=== PATIENT | female | born 1945 | race Caucasian/White ===

== ENCOUNTER 2024-01-06 17:16 | Emergency (ER) | payer OTHER, SELFPAY ==
[2024-01-06] VITALS (17 sets, daily range): BP systolic 99–148; BP diastolic 58–78; PULSE 75–102; RESP 18–35; TEMP 37.2; O2SAT 94–100; BMI 16.5
--- NOTE | 2024-01-06 17:43 | DI.CT.S_ITS ---
PROCEDURE: CT HEAD/BRAIN WO CON INDICATIONS: multiple falls, headache, chronic headache TECHNIQUE: Noncontrast 4.5 mm thick angled axial sections acquired from the foramen magnum to the vertex, with coronal and sagittal reformats. For radiation dose reduction, the following was used: automated exposure control, adjustment of mA and/or kV according to patient size. COMPARISON: [facility], CT, CT CERVICAL SPINE WO CON, 01/06/2024, 17:58. FINDINGS: Image quality: Diagnostic. CSF spaces: Basal cisterns are patent. No extra-axial fluid collections. The ventricles are symmetric in size and shape. Brain: No intracranial bleeds or masses. There is cerebral volume loss for age, with resultant ventricular and sulcal prominence. There are periventricular and deep white matter chronic small vessel ischemic changes. There is intracranial internal carotid artery atherosclerosis. Skull and face: Calvarium and visualized facial bones appear intact, without suspicious lesions. Sinuses: Visualized sinuses and mastoids are clear. IMPRESSION: 1. No acute intracranial process. 2. Moderate atrophy and chronic microvascular ischemic changes. Dictated by: Barbie Cruz M.D. on 01/06/2024 at 18:51 Approved by: Barbie Cruz M.D. on 01/06/2024 at 18:52
--- NOTE | 2024-01-06 17:43 | DI.RAD.S_ITS ---
PROCEDURE: XR CHEST 1V INDICATIONS: chest pain TECHNIQUE: One view of the chest was acquired. COMPARISON: None. FINDINGS: Surgical changes and devices: None. Lungs and pleura: Lungs are clear. No pleural effusions or pneumothorax. Mediastinum: Mediastinal contours appear normal. Heart size is normal. Bones and chest wall: No suspicious bony lesions. Overlying soft tissues appear unremarkable. IMPRESSION: No acute cardiopulmonary abnormality is seen. Dictated by: Barbie Cruz M.D. on 01/06/2024 at 18:11 Approved by: Barbie Cruz M.D. on 01/06/2024 at 18:12
--- NOTE | 2024-01-06 17:43 | DI.CT.S_ITS ---
PROCEDURE: CT CERVICAL SPINE WO CON INDICATIONS: multiple falls TECHNIQUE: Noncontrast 3 mm thick sections acquired from the skull base to the T4 level. Sagittal and coronal reformats were then constructed. For radiation dose reduction, the following was used: automated exposure control, adjustment of mA and/or kV according to patient size. COMPARISON: None. FINDINGS: Image quality: Excellent. Bones: No fractures or dislocations. Visualized superior ribs are intact. Multilevel degenerative disc space narrowing most severe C4-5 through C6-7. There is reversal cervical curvature with apex at C5-6. Multilevel anterior osteophytes present. 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 Soft tissues: Prevertebral soft tissues are normal in thickness. No paravertebral hematomas. No apical pneumothoraces. IMPRESSION: Multilevel degenerative changes without visualized fracture Dictated by: Barbie Cruz M.D. on 01/06/2024 at 18:52 Approved by: Barbie Cruz M.D. on 01/06/2024 at 18:53
[2024-01-06 18:01] LABS: Appearance Urine UA CLEAR; Bilirubin Urine UA 1+ (NEGATIVE); Color Urine UA YELLOW; Glucose Urine UA NEGATIVE (Negative); Ketones Urine UA TRACE (NEGATIVE); Leukocyte Esterase Urine UA NEGATIVE (NEGATIVE); Nitrite Urine UA NEGATIVE (Negative); Occult Blood Urine UA NEGATIVE (Negative); Protein Urine UA 2+ (Negative); Specific Gravity Urine UA >=1.030 (1.000-1.035)
[2024-01-06 18:05] LABS: UR Morphine/Opiate cutoff 300 Negative (Negative); Ur Creatinine Normal (Normal); Ur Specific Gravity Normal (Normal); Urine Amphetamines Negative (Negative); Urine Barbiturates Negative (Negative); Urine Benzodiazepines Negative (Negative); Urine Cocaine Negative (Negative); Urine MDMA Negative (Negative); Urine Methadone Negative (Negative); Urine Methamphetamines Negative (Negative); Urine Oxycodone Negative (Negative); Urine Phencyclidine Negative (Negative); Urine Tetrahydrocannabinol Positive (Negative); Urine Tricyclic Antidepressant Negative (Negative); Urine pH Normal (Normal)
[2024-01-06 18:10] LABS: Bacteria Urine Moderate (10-30); Culture Indicated Urine Cult Not Indicated; Hyaline Casts Urine 1-5/LPF; Ictotest Urine Positive (Negative); Mucus Urine 1+ (Negative); RBC Urine None Seen (0-5/HPF); Squamous Epithelial Cell Urine 10-30 /HPF (0-5/HPF); Urine Volume 10mL (spun); WBC Urine 1-5/HPF (0-5/HPF)
[2024-01-06 18:23] LABS: INR 1.3 (0.9-1.3); Prothrombin Time 15.1 SECONDS (9.4-12.5)
[2024-01-06 18:26] LABS: Add Manual Diff / Slide Review NO; Basophils Absolute Auto 0 /uL (0-100); Basophils Percent Auto 0.4 % (0-2); Eosinophils Absolute Auto 100 /uL (0-450); Eosinophils Percent Auto 1.2 % (2-4); Hematocrit 33.8 % (36-46); Hemoglobin 11.8 g/dL (12.0-16.0); Lymphocytes Absolute Auto 900 /uL (1100-4500); Lymphocytes Percent Auto 9.3 % (25-40); Mean Corpuscular HGB Conc 34.8 % (30-36); Mean Corpuscular Hemoglobin 39.8 PG (26-34); Mean Corpuscular Volume 114.1 fL (80-100); Monocytes Absolute Auto 600 /uL (0-900); Monocytes Percent Auto 5.9 % (3-14); Neutrophils Absolute Auto 8200 /uL (1500-7000); Neutrophils Percent Auto 83.2 % (50-75); PTT Partial Thromboplastin Tim 32 SECONDS (25.1-36.5); Platelet Count 200 X10^3/uL (150-400); Red Blood Cell Count 2.96 X10^6/uL (4.0-5.2); Red Cell Distribution Width 14.3 % (11.6-14.8); White Blood Cell Count 9.9 X10^3/uL (4.5-11.0)
[2024-01-06 18:29] LABS: Albumin 4.5 g/dL (3.5-5.0); Albumin Globulin Ratio 1.4 (1.0-2.8); Alkaline Phosphatase 158 U/L (38-126); BUN Creatinine Ratio 23.7 (6-22); Bilirubin Total 3.1 mg/dL (0.2-1.3); Blood Urea Nitrogen 28 mg/dL (7-17); Calcium 9.6 mg/dL (8.4-10.2); Carbon Dioxide 19 mmol/L (22-32); Chloride 106 mmol/L (98-107); Creatine Kinase 142 U/L (30-135); Estimated Glomerular Filt Rate 47 mL/min (>60); Ethanol (ETOH) < 10 mg/dL; Globulin 3.3 g/dL (1.7-4.1); Glucose 108 mg/dL (80-110); HEMOLYSIS < 15 (0-50); Lipase 337 U/L (23-300); Potassium 3.5 mmol/L (3.4-5.1); Sodium 135 mmol/L (137-145); Total Protein 7.8 g/dL (6.3-8.2)
[2024-01-06 18:39] LABS: Troponin I < 0.012 ng/mL (0.01-0.034)
[2024-01-06 18:40] LABS: Alanine Aminotransferase 938 IU/L (<35)
[2024-01-06 18:43] LABS: Macrocytosis 2+
[2024-01-06 18:49] LABS: Aspartate Aminotransferase 3592 IU/L (14-36)
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
--- NOTE | 2024-01-06 19:54 | DI.CT.S_ITS ---
PROCEDURE: CT ABDOMEN PELVIS W CON INDICATIONS: abnormal LFTS, weight loss, falling TECHNIQUE: After the administration of intravenous contrast, axial sections acquired from the lung bases to the pubic symphysis. Coronal and sagittal reformats were performed. For radiation dose reduction, the following was used: automated exposure control, adjustment of mA and/or kV according to patient size. COMPARISON: None. FINDINGS: Image quality: Diagnostic. Lower Chest: No significant findings. ABDOMEN: Liver: No solid mass. Liver is hypoattenuating, consistent with diffuse fatty infiltration. Gallbladder: Gallbladder is mildly distended with trace pericholecystic fluid. No radiopaque gallstone is seen. Biliary ducts: No biliary dilation. Pancreas: No ductal dilation. Spleen: Size is within normal limits. Adrenal Glands: No adrenal nodules. Kidneys and Ureters: No hydronephrosis. No solid mass. No complex renal cystic lesion which requires follow up. Stomach and Bowel: Mild bowel wall thickening in the colon with liquid stool may indicate a nonspecific colitis. There is also a mildly prominent fluid-filled loops of small bowel throughout the abdomen that can be seen in setting of enteritis. Multiple diverticular seen in the colon without focal diverticulitis. Peritoneum: No abnormal intraperitoneal fluid. No free air. Ventral Wall: No significant ventral hernia. Abdominal Nodes: No retroperitoneal or mesenteric adenopathy by size criteria. Vessels: Aorta and inferior vena cava are normal in size. PELVIS: Pelvic Organs: Unremarkable. Bladder: No bladder wall thickening, accounting for underdistention. Pelvic Nodes: No enlarged lymph nodes. Miscellaneous: No inguinal hernias are seen. Bones: Multilevel degenerative changes and degenerative spondylolisthesis in the included spine. IMPRESSION: 1. Mild bowel wall thickening in the colon and mildly prominent fluid-filled loops of small and large bowel are suspicious for a nonspecific enterocolitis. 2. Mildly distended gallbladder with small amount of pericholecystic fluid but no radiopaque gallstones. Recommend correlation with clinical findings to exclude acute cholecystitis. Gallbladder ultrasound could be performed for throat evaluation if indicated clinically. Approved by: Farhan Velazquez M.D. on 01/06/2024 at 20:53
[2024-01-06] MEDS: THIAMINE 100 MG in SODIUM CHLORIDE 0.9% 100 ML 404 MG IV (20:00)
[2024-01-06] MEDS: SODIUM CHLORIDE 0.9% 500 ML 1000 ML IV (20:03)
--- NOTE | 2024-01-06 21:06 | DI.US.S_ITS ---
PROCEDURE: US ABDOMEN LIMITED INDICATIONS: elevated LFTs, looking at gall bladder TECHNIQUE: Real-time scanning was performed of the abdominal and retroperitoneal organs, with image documentation. COMPARISON: [facility], CT, CT ABDOMEN PELVIS W CON, 01/06/2024, 20:11. FINDINGS: Liver: Liver is normal in size and diffusely increased in echogenicity. Gallbladder: No gallstones. No wall thickening. Negative sonographic Blair's sign. small amount of pericholecystic fluid is present. Biliary ducts: Intrahepatic bile ducts are non-dilated. Extrahepatic bile duct caliber measures three mm. Normal is 6-7 mm or less in diameter, or 10 mm or less post-cholecystectomy. Pancreas: Visualized portions of the pancreas are sonographically normal. Miscellaneous: No free abdominal fluid. No right renal hydronephrosis. IMPRESSION: 1. Mild nonspecific pericholecystic fluid. No gallstones or other signs of cholecystitis. 2. Diffusely increased hepatic echogenicity is nonspecific, but most commonly encountered in the setting of hepatic steatosis. However, other causes of hepatocellular disease are not excluded. Recommend clinical correlation. Approved by: Farhan Velazquez M.D. on 01/06/2024 at 23:28
[2024-01-06 21:40] LABS: Ammonia (NH3) 26 umol/L (9-30)
== END 2024-01-06 23:45 | disposition home or self-care (01) ==
PROVIDERS: Emergency Medicine; Emergency Provider Emergency Medicine; PCP Family Medicine
DX: R62.7 Adult failure to thrive (principal); D53.9 Nutritional anemia, unspecified; K70.0 Alcoholic fatty liver; F10.90 Alcohol use, unspecified, uncomplicated; R29.6 Repeated falls; R07.9 Chest pain, unspecified
CPT/HCPCS: 36415; 70450; 71045; 72125; 74177; 76705; 80053; 80305; 80320; 81001; 82140; 82550; 83690; 83735; 84484; 85025; 85610; 85730; 93005; 93010; 96360; 99284; 99285; Q9967

== ENCOUNTER → 2024-02-16 16:53 | Outpatient (CLI) | payer MEDICARE, SELFPAY | PROVIDERS: PCP Family Medicine; Visit Provider Physician Assistant Medical | DX: R94.4 Abnormal results of kidney function studies (principal) | CPT/HCPCS: 87086 ==